=== PATIENT | female | born 1980 | race Caucasian/White ===

== ENCOUNTER 2023-01-15 13:20 | Emergency (ER) | payer SELFPAY ==
[~2023-01-15] VITALS: Ht 170.2 cm; Wt 64.3 kg
[2023-01-15 14:56] VITALS: BP 136/93
[2023-01-15] MEDS ORDERED: AMOX500C2 PO (15:48)
[2023-01-15] MEDS ORDERED: METH4PAK PO (15:48)
[2023-01-15] MEDS ORDERED: BENZ100C19 PO (15:48)
== END 2023-01-15 16:06 | disposition home or self-care (01) ==
LOC: ER 13:20
DX: J20.9 Acute bronchitis, unspecified (principal); J01.90 Acute sinusitis, unspecified; F12.90 Cannabis use, unspecified, uncomplicated
CPT/HCPCS: 71046